=== PATIENT | female | born 1990 | race Caucasian/White ===

== ENCOUNTER 2019-09-08 11:41 | Emergency (ER) | payer OTHER ==
[2019-09-08 11:45] VITALS: RESP 18; TEMP 97.4
[2019-09-08] MEDS ORDERED: SODIUM CHLORIDE 0.9% 500 ML 500 ML IV STA (12:38)
[2019-09-08 12:50] LABS: Basophils % (A) 1 %; Eosinophils # (A) 0.1 k/uL (0-0.7); Eosinophils % (A) 2 %; HCT 40.7 % (34.0-46.0); HGB 13.5 gm/dL (11.4-16.0); Lymphocytes # (A) 1.4 k/uL (1.0-4.8); Lymphocytes % (A) 32 %; MCHC 33.1 g/dL (31.0-37.0); MCV 93.7 fL (80.0-100.0); Mean Platelet Volume 7.5; Monocytes # (A) 0.2 k/uL (0-1.0); Monocytes % (A) 6 %; Neutrophils # (A) 2.5 k/uL (1.3-7.7); Neutrophils % (A) 58 %; Platelet Count 229 k/uL (150-450); RBC 4.35 m/uL (3.80-5.40); RDW 12.2 % (11.5-15.5); WBC 4.3 k/uL (3.8-10.6)
[2019-09-08 12:54] LABS: Appearance,Urine Clear (Clear); Bilirubin,Urine Negative (Negative); Blood,Urine Negative (Negative); Color,Urine Yellow; Glucose,Urine (UA) Negative (Negative); Ketones,Urine Negative (Negative); Leukocyte Esterase,Urine Negative (Negative); Nitrite,Urine Negative (Negative); PH, Urine 7.5 (5.0-8.0); Protein,Urine Trace (Negative); Specific Gravity,Urine 1.025 (1.001-1.035); Urobilinogen,Urine <2.0 mg/dL (<2.0)
[2019-09-08 13:01] LABS: ALT 15 U/L (4-34); AST 25 U/L (14-36); African American GFR (CKD) >90 (>60 ml/min/1.73 sqM); Albumin 4.7 g/dL (3.5-5.0); Alkaline Phosphatase 66 U/L (38-126); Anion Gap 8 mmol/L; Blood Urea Nitrogen 15 mg/dL (7-17); Calcium 9.7 mg/dL (8.4-10.2); Carbon Dioxide 25 mmol/L (22-30); Chloride 106 mmol/L (98-107); Glucose 94 mg/dL (74-99); Non-African American GFR(CKD) >90 (>60 ml/min/1.73 sqM); Potassium 5.2 mmol/L (3.5-5.1); Sodium 139 mmol/L (137-145); Total Bilirubin 0.4 mg/dL (0.2-1.3); Total Protein 7.4 g/dL (6.3-8.2)
--- NOTE | 2019-09-08 13:16 | XR ---
EXAMINATION TYPE: XR KUB DATE OF EXAM: 09/08/2019 1:09 PM CLINICAL HISTORY: Right-sided abdominal pain and swelling TECHNIQUE: Single supine KUB image of the abdomen is obtained. COMPARISON: None. FINDINGS: The liver is enlarged extending past the iliac crest. Possibility of bowel gas in the right abdomen is seen secondary to hepatomegaly. S-shaped scoliotic curvature of the thoracolumbar spine. Rectum is air-filled but nondilated. No dilated large or small bowel. Lung bases are well aerated. Os seous structures are intact. IMPRESSION: 1. Hepatomegaly. 2. Nonobstructive bowel gas pattern. Bowel is deviated towards the left secondary to hepatomegaly.
--- NOTE | 2019-09-08 13:55 | US ---
EXAMINATION TYPE: US gallbladder DATE OF EXAM: 09/08/2019 COMPARISON: NONE CLINICAL HISTORY: RUQ pain . right sided abdominal pain and bloating since this morning EXAM MEASUREMENTS: Liver Length: 19.9 cm Gallbladder Wall: 0.2 cm CBD: 0.3 cm Right Kidney: 12.2 x 4.0 x 4.2 cm Pancreas: limited evaluation due to overlying bowel content, visualized portions appear wnl Liver: enlarged Gallbladder: no evidence of stones Evidence for sonographic Harper's sign: no CBD: wnl Right Kidney: no evidence of hydronephrosis IMPRESSION: No sonographic evidence of cholelithiasis nor acute cholecystitis. Hepatomegaly is incide ntally seen.
[2019-09-08 14:28] VITALS: BP 111/68; PULSE 75
--- NOTE | 2019-09-08 14:40 | ED ---
General Adult HPI - General Chief complaint: Abdominal Pain Stated complaint: abd swelling Time Seen by Provider: 09/08/19 11:51 Source: patient, RN notes reviewed, old records reviewed Mode of arrival: ambulatory Limitations: no limitations - History of Present Illness Initial comments: 29-year-old female patient presents to the chief complaint of right upper quadrant abdominal pain, abdominal distention was began this morning. Patient presents that she woke up the right upper quadrant pain. Reports that she also feels that she is bloated. Reports that time of evaluation her pain is mostly decreased. Denies any other complaints at this time. She is having bowel movements, denies any nausea or vomiting. Denies any chance of being . Systemic: Pt denies fatigue, fever/chills, rash. Pt denies weakness, night sweats, weight loss. Neuro: Pt denies headache, visual disturbances, syncope or pre-syncope. HEENT: Pt denies ocular discharge or irritation, otalgia, rhinorrhea, pharyngitis or notable lymphadenopathy. Cardiopulmonary: Pt denies chest pain, SOB, heart palpitations, dyspnea on exertion. Abdominal/GI: Pt denies n/v/d. : Pt denies dysuria, burning w/ urination, frequency/urgency. Denies new onset urinary or bowel incontinence. MSK: Pt denies myalgia, loss of strength or function in extremities. Neuro: Pt denies new onset weakness, paresthesias. - Related Data Allergies Allergy/AdvReac Type Severity Reaction Status Date / Time Penicillins Allergy Unknown Verified 09/08/19 11:45 Review of Systems ROS Statement: Those systems with pertinent positive or pertinent negative responses have been documented in the HPI. ROS Other: All systems not noted in ROS Statement are negative. Past Medical History Past Medical History: No Reported History History of Any Multi-Drug Resistant Organisms: None Reported Past Surgical History: No Surgical Hx Reported Past Psychological History: Depression Smoking Status: Former smoker Past Alcohol Use History: Occasional Past Drug Use History: None Reported General Exam - General Exam Comments Initial Comments: Constitutional: NAD, AOX3, Pt has pleasant affect. HEENT: NC/AT, trachea midline, neck supple, no lymphadenopathy. Posterior pharynx non erythematous, without exudates. External ears appear normal, without discharge. Mucous membranes moist. Eyes PERRLA, EOM intact. There is no scleral icterus. No pallor noted. Cardiopulmonary: RRR, no murmurs, rubs or gallops, no JVD noted. Lungs CTAB in anterior and posterior reyna. No peripheral edema. Abdominal exam: Abdomen soft and non-distended. Abdomen mildly tender to palpation right upper quadrant region. Harper sign is negative. Metabolic amount of discomfort left periumbilical region.. Bowel sounds active in LLQ. No hepatosplenomegaly. No ecchymosis Neuro: CN II-XII grossly intact. No nuchal rigidity. No raccon eyes, no bustos sign, no hemotympanum. No cervical spinal tenderness. MSK: No posterior calf tenderness bilaterally, homans sign negative bilaterally. Posterior tibialis and radial pulse +2 bilaterally. Sensation intact in upper and lower extremities. Full active ROM in upper and lower extremities, 5/5 stregnth. Limitations: no limitations Course Vital Signs 09/08/19 09/08/19 11:43 14:27 Temperature 97.4 F L Pulse Rate 70 75 Respiratory 18 18 Rate Blood Pressure 115/76 111/68 O2 Sat by Pulse 99 95 Oximetry Medical Decision Making - Medical Decision Making 29-year-old female patient presents to ED chief complaint of abdominal pain which has improved greatly upon presentation to the ER. Patient will signs are stable, afebrile. Physical exam displayed very mild tenderness to right upper quadrant, left periumbilical region. Laboratory investigations are non- impressive. UA is negative, hCG is negative. KUB displayed hepatomegaly, nonobstructive bowel gas pattern. Ultrasound not display any evidence of cholelithiasis or cholecystitis. Hepatomegaly is currently seen. Patient likely was experiencing biliary colic. Patient discharged outpatient surgical follow-up. Patient also will follow up with primary care provider for hepatomegaly. Patient will return to ER if condition worsens. Case discussed with Dr. Yang. - Lab Data Result diagrams: 09/08/19 12:30 09/08/19 12:30 Lab Results 09/08/19 09/08/19 09/08/19 Range/Units 12:30 12:30 12:30 WBC 4.3 (3.8-10.6) k/uL RBC 4.35 (3.80-5.40) m/uL Hgb 13.5 (11.4-16.0) gm/dL Hct 40.7 (34.0-46.0) % MCV 93.7 (80.0-100.0) fL MCH 31.0 (25.0-35.0) pg MCHC 33.1 (31.0-37.0) g/dL RDW 12.2 (11.5-15.5) % Plt Count 229 (150-450) k/uL Neutrophils % 58 % Lymphocytes % 32 % Monocytes % 6 % Eosinophils % 2 % Basophils % 1 % Neutrophils # 2.5 (1.3-7.7) k/uL Lymphocytes # 1.4 (1.0-4.8) k/uL Monocytes # 0.2 (0-1.0) k/uL Eosinophils # 0.1 (0-0.7) k/uL Basophils # 0.0 (0-0.2) k/uL Sodium 139 (137-145) mmol/L Potassium 5.2 H (3.5-5.1) mmol/L Chloride 106 (98-107) mmol/L Carbon Dioxide 25 (22-30) mmol/L Anion Gap 8 mmol/L BUN 15 (7-17) mg/dL Creatinine 0.71 (0.52-1.04) mg/dL Est GFR (CKD-EPI)AfAm >90 (>60 ml/min/1.73 sqM) Est GFR (CKD-EPI)NonAf >90 (>60 ml/min/1.73 sqM) Glucose 94 (74-99) mg/dL Plasma Lactic Acid Bradford (0.7-2.0) mmol/L Calcium 9.7 (8.4-10.2) mg/dL Total Bilirubin 0.4 (0.2-1.3) mg/dL AST 25 (14-36) U/L ALT 15 (4-34) U/L Alkaline Phosphatase 66 (38-126) U/L Total Protein 7.4 (6.3-8.2) g/dL Albumin 4.7 (3.5-5.0) g/dL Lipase 57 (23-300) U/L Urine Color Urine Appearance (Clear) Urine pH (5.0-8.0) Ur Specific [place] (1.001-1.035) Urine Protein (Negative) Urine Glucose (UA) (Negative) Urine Ketones (Negative) Urine Blood (Negative) Urine Nitrite (Negative) Urine Bilirubin (Negative) Urine Urobilinogen (<2.0) mg/dL Ur Leukocyte Esterase (Negative) Urine HCG, Qual Not Detected (Not Detectd) 09/08/19 09/08/19 Range/Units 12:30 12:30 WBC (3.8-10.6) k/uL RBC (3.80-5.40) m/uL Hgb (11.4-16.0) gm/dL Hct (34.0-46.0) % MCV (80.0-100.0) fL MCH (25.0-35.0) pg MCHC (31.0-37.0) g/dL RDW (11.5-15.5) % Plt Count (150-450) k/uL Neutrophils % % Lymphocytes % % Monocytes % % Eosinophils % % Basophils % % Neutrophils # (1.3-7.7) k/uL Lymphocytes # (1.0-4.8) k/uL Monocytes # (0-1.0) k/uL Eosinophils # (0-0.7) k/uL Basophils # (0-0.2) k/uL Sodium (137-145) mmol/L Potassium (3.5-5.1) mmol/L Chloride (98-107) mmol/L Carbon Dioxide (22-30) mmol/L Anion Gap mmol/L BUN (7-17) mg/dL Creatinine (0.52-1.04) mg/dL Est GFR (CKD-EPI)AfAm (>60 ml/min/1.73 sqM) Est GFR (CKD-EPI)NonAf (>60 ml/min/1.73 sqM) Glucose (74-99) mg/dL Plasma Lactic Acid Bradford 0.9 (0.7-2.0) mmol/L Calcium (8.4-10.2) mg/dL Total Bilirubin (0.2-1.3) mg/dL AST (14-36) U/L ALT (4-34) U/L Alkaline Phosphatase (38-126) U/L Total Protein (6.3-8.2) g/dL Albumin (3.5-5.0) g/dL Lipase (23-300) U/L Urine Color Yellow Urine Appearance Clear (Clear) Urine pH 7.5 (5.0-8.0) Ur Specific [place] 1.025 (1.001-1.035) Urine Protein Trace H (Negative) Urine Glucose (UA) Negative (Negative) Urine Ketones Negative (Negative) Urine Blood Negative (Negative) Urine Nitrite Negative (Negative) Urine Bilirubin Negative (Negative) Urine Urobilinogen <2.0 (<2.0) mg/dL Ur Leukocyte Esterase Negative (Negative) Urine HCG, Qual (Not Detectd) Disposition Clinical Impression: Abdominal pain Disposition: HOME SELF-CARE Condition: Stable Instructions (If sedation given, give patient instructions): Abdominal Pain (ED) Additional Instructions: Follow-up with primary care provider and surgical consult tomorrow. Return to ER immediately if condition worsens in any way. Is patient prescribed a controlled substance at d/c from ED?: No Referrals: Florin Samayoa MD [Primary Care Provider] - 1-2 days Sneha Wolf MD [STAFF PHYSICIAN] - 1-2 days
== END 2019-09-08 14:58 | disposition home or self-care (01) ==
LOC: EC 11:41
DX: R10.11 Right upper quadrant pain (principal); R14.0 Abdominal distension (gaseous); R16.0 Hepatomegaly, not elsewhere classified; Z32.02 Encounter for pregnancy test, result negative; Z88.0 Allergy status to penicillin; Z87.891 Personal history of nicotine dependence
CPT/HCPCS: 36415; 74018; 76705; 80053; 81003; 81025; 83605; 83690; 85025; 96360; 96361; 99285

== ENCOUNTER 2019-11-05 20:50 | Inpatient (IN) | payer OTHER ==
[2019-11-05 22:01] LABS: Amphetamine Screen,Urine Not Detected (NotDetected); Barbiturate Screen,Urine Not Detected (NotDetected); Benzodiazepines Screen,Urine Not Detected (NotDetected); Cocaine Screen,Urine Not Detected (NotDetected); Methadone Screen, Urine Not Detected (NotDetected); Opiate Screen,Urine Not Detected (NotDetected); Oxycodone Screen, Urine Not Detected (NotDetected); Phencyclidine Screen,Urine Not Detected (NotDetected); Tricyclic Antidepressant,Urine Not Detected (NotDetected); Urn Cannabinoid Scrn Not Detected (NotDetected)
--- NOTE | 2019-11-05 22:55 | ED ---
General Adult HPI - General Chief complaint: Psychiatric Symptoms Stated complaint: Suicidal Ideation Time Seen by Provider: 11/05/19 20:55 Source: patient, RN notes reviewed Mode of arrival: ambulatory Limitations: no limitations - History of Present Illness Initial comments: 29-year-old female presents to the emergency department for suicidal thoughts. Patient states that she was recently hospitalized and released about a week ago for suicidal thoughts. States she has had several medication changes including the additions of Vistaril, Ambien. Patient has been taking Lexapro for quite some time. Patient states that her side effects did improve after she was released from the hospital. However today she was on her way to pharmacy picking tech her son and felt suicidal. States that she saw the oncoming traffic and wanted to drive into it. Patient states she knew that at that time she needed to be evaluated.Patient has no other complaints at this time including shortness of breath, chest pain, abdominal pain, nausea or vomiting, headache, or visual changes. - Related Data Home Medications Medication Instructions Recorded Confirmed ARIPiprazole [Abilify] 10 mg PO HS 11/05/19 11/05/19 Escitalopram [Lexapro] 20 mg PO HS 11/05/19 11/05/19 Zolpidem [Ambien] 5 mg PO HS PRN 11/05/19 11/05/19 hydrOXYzine PAMOATE [Vistaril] 25 mg PO Q6H PRN 11/05/19 11/05/19 Allergies Allergy/AdvReac Type Severity Reaction Status Date / Time Penicillins Allergy Unknown Verified 11/05/19 23:06 Review of Systems ROS Statement: Those systems with pertinent positive or pertinent negative responses have been documented in the HPI. ROS Other: All systems not noted in ROS Statement are negative. Past Medical History Past Medical History: No Reported History History of Any Multi-Drug Resistant Organisms: None Reported Past Surgical History: No Surgical Hx Reported Past Psychological History: Depression Smoking Status: Former smoker Past Alcohol Use History: Occasional Past Drug Use History: None Reported General Exam Limitations: no limitations General appearance: alert, in no apparent distress Head exam: Present: atraumatic, normocephalic, normal inspection Eye exam: Present: normal appearance, PERRL, EOMI. Absent: scleral icterus, conjunctival injection, periorbital swelling ENT exam: Present: normal exam, mucous membranes moist Neck exam: Present: normal inspection. Absent: tenderness, meningismus, lymphadenopathy Respiratory exam: Present: normal lung sounds bilaterally. Absent: respiratory distress, wheezes, rales, rhonchi, stridor Cardiovascular Exam: Present: regular rate, normal rhythm, normal heart sounds. Absent: systolic murmur, diastolic murmur, rubs, gallop, clicks GI/Abdominal exam: Present: soft, normal bowel sounds. Absent: distended, tenderness, guarding, rebound, rigid Neurological exam: Present: alert Psychiatric exam: Present: suicidal ideation Course Vital Signs 11/05/19 20:52 Temperature 98.0 F Pulse Rate 71 Respiratory 18 Rate Blood Pressure 130/84 O2 Sat by Pulse 98 Oximetry Medical Decision Making - Medical Decision Making HPI and physical exam as documented. Vitals are stable. Patient was evaluated by EPS, currently recommending inpatient admission. Patient signed in herself. - Lab Data Lab Results 11/05/19 Range/Units 21:30 Urine Opiates Screen Not Detected (NotDetected) Ur Oxycodone Screen Not Detected (NotDetected) Urine Methadone Screen Not Detected (NotDetected) Ur Propoxyphene Screen Not Detected (NotDetected) Ur Barbiturates Screen Not Detected (NotDetected) U Tricyclic Antidepress Not Detected (NotDetected) Ur Phencyclidine Scrn Not Detected (NotDetected) Ur Amphetamines Screen Not Detected (NotDetected) U Methamphetamines Scrn Not Detected (NotDetected) U Benzodiazepines Scrn Not Detected (NotDetected) Urine Cocaine Screen Not Detected (NotDetected) U Marijuana (THC) Screen Not Detected (NotDetected) Disposition Clinical Impression: Suicidal ideation Disposition: ADMITTED IP TO THIS HOSP Condition: Fair Is patient prescribed a controlled substance at d/c from ED?: No Referrals: Florin Samayoa MD [Primary Care Provider] - 1-2 days Time of Disposition: 23:16
[2019-11-05] MEDS ORDERED: MAG HYDROX/AL HYDROX/SIMETH 30 ML CUP PO PRN (23:03)
[2019-11-05] MEDS ORDERED: ZIPRASIDONE 20 MG VIAL IM PRN (23:03)
[2019-11-05] MEDS: LORazepam 1 MG TAB PO PRN (23:53)
[2019-11-06 07:11] LABS: Basophils % (A) 1 %; Eosinophils # (A) 0.1 k/uL (0-0.7); Eosinophils % (A) 2 %; HGB 13.8 gm/dL (11.4-16.0); Lymphocytes # (A) 1.6 k/uL (1.0-4.8); Lymphocytes % (A) 34 %; MCH 31.2 pg (25.0-35.0); MCHC 32.7 g/dL (31.0-37.0); MCV 95.3 fL (80.0-100.0); Mean Platelet Volume 7.3; Monocytes # (A) 0.3 k/uL (0-1.0); Monocytes % (A) 6 %; Neutrophils # (A) 2.6 k/uL (1.3-7.7); Neutrophils % (A) 56 %; Platelet Count 244 k/uL (150-450); RDW 12.4 % (11.5-15.5); WBC 4.7 k/uL (3.8-10.6)
[2019-11-06 07:24] LABS: ALT 17 U/L (4-34); AST 22 U/L (14-36); African American GFR (CKD) >90 (>60 ml/min/1.73 sqM); Albumin 4.5 g/dL (3.5-5.0); Alkaline Phosphatase 49 U/L (38-126); Anion Gap 10 mmol/L; Blood Urea Nitrogen 17 mg/dL (7-17); Calcium 9.7 mg/dL (8.4-10.2); Carbon Dioxide 25 mmol/L (22-30); Chloride 104 mmol/L (98-107); Cholesterol 199 mg/dL (<200); Glucose 90 mg/dL (74-99); HDL Cholesterol 75 mg/dL (40-60); LDL Cholesterol,Calculated 114 mg/dL (0-99); Non-African American GFR(CKD) >90 (>60 ml/min/1.73 sqM); Potassium 4.4 mmol/L (3.5-5.1); Sodium 139 mmol/L (137-145); Total Bilirubin 0.4 mg/dL (0.2-1.3); Total Protein 7.3 g/dL (6.3-8.2); Triglycerides 51 mg/dL (<150)
[2019-11-06] MEDS: LORazepam 1 MG TAB PO PRN ×2 (08:23→15:49)
[2019-11-06 13:51] LABS: Hemoglobin A1C 5.3 % (4.0-6.0)
--- NOTE | 2019-11-06 14:55 | P.HP ---
Psychiatric H&P - . H&P Date: 11/06/19 History & Physical: Allergies Allergy/AdvReac Type Severity Reaction Status Date / Time Penicillins Allergy Unknown Verified 11/05/19 23:06 Vital Signs Temp 98.5 F 11/06/19 08:24 Pulse 107 H 11/06/19 08:24 Resp 20 11/06/19 08:24 BP 130/62 11/06/19 08:24 Pulse Ox 98 11/05/19 23:20 Intake & Output 11/05/19 11/06/19 11/06/19 18:59 06:59 18:59 Weight 62.596 kg Laboratory Last Values WBC 4.7 k/uL (3.8-10.6) 11/06/19 06:49 RBC 4.40 m/uL (3.80-5.40) 11/06/19 06:49 Hgb 13.8 gm/dL (11.4-16.0) 11/06/19 06:49 Hct 42.0 % (34.0-46.0) 11/06/19 06:49 MCV 95.3 fL (80.0-100.0) 11/06/19 06:49 MCH 31.2 pg (25.0-35.0) 11/06/19 06:49 MCHC 32.7 g/dL (31.0-37.0) 11/06/19 06:49 RDW 12.4 % (11.5-15.5) 11/06/19 06:49 Plt Count 244 k/uL (150-450) 11/06/19 06:49 Neutrophils % 56 % 11/06/19 06:49 Lymphocytes % 34 % 11/06/19 06:49 Monocytes % 6 % 11/06/19 06:49 Eosinophils % 2 % 11/06/19 06:49 Basophils % 1 % 11/06/19 06:49 Neutrophils # 2.6 k/uL (1.3-7.7) 11/06/19 06:49 Lymphocytes # 1.6 k/uL (1.0-4.8) 11/06/19 06:49 Monocytes # 0.3 k/uL (0-1.0) 11/06/19 06:49 Eosinophils # 0.1 k/uL (0-0.7) 11/06/19 06:49 Basophils # 0.0 k/uL (0-0.2) 11/06/19 06:49 Sodium 139 mmol/L (137-145) 11/06/19 06:49 Potassium 4.4 mmol/L (3.5-5.1) 11/06/19 06:49 Chloride 104 mmol/L (98-107) 11/06/19 06:49 Carbon Dioxide 25 mmol/L (22-30) 11/06/19 06:49 Anion Gap 10 mmol/L 11/06/19 06:49 BUN 17 mg/dL (7-17) 11/06/19 06:49 Creatinine 0.68 mg/dL (0.52-1.04) 11/06/19 06:49 Est GFR (CKD-EPI)AfAm >90 (>60 ml/min/1.73 sqM) 11/06/19 06:49 Est GFR (CKD-EPI)NonAf >90 (>60 ml/min/1.73 sqM) 11/06/19 06:49 Glucose 90 mg/dL (74-99) 11/06/19 06:[address] Glu mg/dL 105 11/06/19 06:49 Hemoglobin A1c 5.3 % (4.0-6.0) 11/06/19 06:49 Calcium 9.7 mg/dL (8.4-10.2) 11/06/19 06:49 Total Bilirubin 0.4 mg/dL (0.2-1.3) 11/06/19 06:49 AST 22 U/L (14-36) 11/06/19 06:49 ALT 17 U/L (4-34) 11/06/19 06:49 Alkaline Phosphatase 49 U/L (38-126) 11/06/19 06:49 Total Protein 7.3 g/dL (6.3-8.2) 11/06/19 06:49 Albumin 4.5 g/dL (3.5-5.0) 11/06/19 06:49 Triglycerides 51 mg/dL (<150) 11/06/19 06:49 Cholesterol 199 mg/dL (<200) 11/06/19 06:49 LDL Cholesterol, Calc 114 mg/dL (0-99) H 11/06/19 06:49 HDL Cholesterol 75 mg/dL (40-60) H 11/06/19 06:49 TSH 1.330 mIU/L (0.465-4.680) 11/06/19 06:49 Urine Opiates Screen Not Detected (NotDetected) 11/05/19 21:30 Ur Oxycodone Screen Not Detected (NotDetected) 11/05/19 21:30 Urine Methadone Screen Not Detected (NotDetected) 11/05/19 21:30 Ur Propoxyphene Screen Not Detected (NotDetected) 11/05/19 21:30 Ur Barbiturates Screen Not Detected (NotDetected) 11/05/19 21:30 U Tricyclic Antidepress Not Detected (NotDetected) 11/05/19 21:30 Ur Phencyclidine Scrn Not Detected (NotDetected) 11/05/19 21:30 Ur Amphetamines Screen Not Detected (NotDetected) 11/05/19 21:30 U Methamphetamines Scrn Not Detected (NotDetected) 11/05/19 21:30 U Benzodiazepines Scrn Not Detected (NotDetected) 11/05/19 21:30 Urine Cocaine Screen Not Detected (NotDetected) 11/05/19 21:30 U Marijuana (THC) Screen Not Detected (NotDetected) 11/05/19 21:30 11/06/19 14:47 IDENTIFYING DATA: 29-year-old female patient HPI: Patient admitted to the inpatient psychiatric unit [facility] on involuntary basis with concerns regarding depression and thoughts of suicide. Patient reports that she's been having thoughts of suicide for last 2 months. She said yesterday she was driving and had thoughts of crashing her car and came to the hospital because of that. She says in the waiting room of the emergency room she had about a bashing her head on the wall. She relays her mood lately has been hopeless, feeling like it's not worth it. She has feelings that her mind can't quiet down. PAST PSYCHIATRIC HISTORY: Patient had a recent psychiatric hospitalization at [place] for approximately a week. That was about a week ago. It certainly previous admission. She does admit to being a worrier. She was placed on Abilify small dose but that made her feel very restless. Vistaril made her feel tired. Ambien when necessary she does not like it. She has been on Lexapro for about 6 months and relays that she really likes that medication but she does feel like it stopped working. She said that she used to cut on herself but has never had any suicide attempts. PMH: Denies ALLERGIES: Penicillins MEDICATIONS: Tylenol when necessary, Maalox when necessary, Ativan when necessary, Motrin when necessary, Geodon when necessary CHEMICAL DEPENDENCY HISTORY: She states that she was drinking quite a lot to where was becoming a problem. Has not had any alcohol for 2 weeks. FAMILY PSYCHIATRIC HISTORY: Little brother was diagnosed with "atypical bipolar disorder." A cousin with depression committed suicide. FAMILY CHEMICAL DEPENDENCY HISTORY: Not known at this time. SOCIAL HISTORY: She currently lives with her mom and 2 children who are 6 and 2. She is close with her kids. She is and , has been filed. She's been for 3 years, her only marriage. 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 MENTAL STATUS EXAM: She is alert and cooperative with the interview. Her speech is fluent, not rapid or pressured. Regarding her mood she describes hopelessness, appears depressed. She admits to some ongoing thoughts of suicide but reports she feels safe in the hospital. She does not verbalize any thoughts of harming others. No evidence of active psychosis. She makes reference to a thought that she wants to sleep forever. Cognitively she appears very grossly intact. I do not note any significant disorientation or memory disturbance. H er insight is adequate, judgment shows evidence of recent impairment. STRENGTHS/WEAKNESSES: Strengths-receiving treatment; weaknesses-coping skills INTELLECTUAL FUNCTIONING: Average IMPRESSIONS: Major depressive disorder, recurrent; rule out generalized anxiety disorder; rule out alcohol use disorder PLAN: Patient is admitted to the inpatient psychiatric unit [facility] a voluntary basis. She is placed on SP 15 minute precautions. Baseline laboratory workup will be done the patient and medical consultation will be ordered. She'll participate in group and activity therapies. We will maintain Lexapro 20 more grams at bedtime with history of some positive response. We will initiate Lamictal to help augment for mood as well as helping with any irritability or racing thoughts. We will order melatonin to help with sleep. We will look into any support systems. Estimated length of stay is 3-5 days. Prognosis is guarded.
[2019-11-06] MEDS: lamoTRIgine 25 MG TAB PO SCH (21:04)
[2019-11-06] MEDS: ESCITALOPRAM 20 MG TAB PO SCH (21:04)
[2019-11-06] MEDS: MELATONIN 3 MG TABLET PO SCH (21:04)
[2019-11-07] MEDS: LORazepam 1 MG TAB PO PRN ×2 (08:28→18:16)
--- NOTE | 2019-11-07 09:04 | HP ---
HISTORY AND PHYSICAL A 29-year-old white female with suicidal ideation and depression, on the psych [facility]. She is on IM Geodon 20 mg b.i.d. and Ativan 1 mg every four hours. She had failed Lexapro for depression. She came to the psychiatric [facility]. She was placed on Abilify and Ambien and sent home. She did not do well. She thought she was going to drive into traffic with her son in the car, at which time she came to the psych [facility]. Clinically she is stable but she is suicidal. No chest pain or shortness of breath. No medical conditions to speak of. REVIEW OF SYSTEMS: A 14-point review of systems is negative except as mentioned in the HPI. PHYSICAL EXAMINATION: CARDIOVASCULAR: S1 and S2. VITALS: Stable. LUNGS: Clear. GASTROINTESTINAL: Soft. HEMATOLOGIC: Negative Homans'. PSYCHIATRIC: Fair mood and affect. ASSESSMENT: 1. Suicidal ideation. 2. Depression. Medically she is stable, just waiting for psychiatric recommendations. MMODL / IJN: [id number] /
--- NOTE | 2019-11-07 11:28 | P.PN ---
Progress Note - Text Progress Note Date: 11/07/19 Interval history: Patient reports that she slept better last night. She is seen in cross coverage again today. She does not voice any adverse side effects with the Lamictal. She does describe related to the Abilify her tongue feels kind of lazy and she did have some jitteriness type feeling with the Abilify. Abilify has been discontinued. She was found in the group room playing a game. Overall her mood does appear to be better. Mental status exam: She is alert and cooperative with the interview. She describes that her tongue feels lazy this does appear to have a slight impact on her speech at times, her speech is not rapid or pressured. I do not note any abnormal involuntary movements. Thought processes are organized. Her mood appears to be better. She denies any current thoughts of suicide. She does not voice any thoughts of harm to others. No evidence of psychosis or agitation. Plan: Will initiate low dose of Cogentin as needed to help with any possible extrapyramidal side effects from Abilify maintain other current psychotropic medication regimen. Continue to monitor regarding any thoughts of suicide. Continue to monitor for any psychotropic medication side effects and ongoing response to treatment
[2019-11-07] MEDS: ACETAMINOPHEN TAB 325 MG TAB PO PRN (13:57)
[2019-11-07] MEDS: BENZTROPINE MESYLATE 0.5 MG TAB PO PRN (15:42)
[2019-11-07] MEDS: lamoTRIgine 25 MG TAB PO SCH (20:53)
[2019-11-07] MEDS: MELATONIN 3 MG TABLET PO SCH (20:53)
[2019-11-07] MEDS: ESCITALOPRAM 20 MG TAB PO SCH (20:53)
[2019-11-08] MEDS: BENZTROPINE MESYLATE 0.5 MG TAB PO PRN (06:41)
[2019-11-08] MEDS: LORazepam 1 MG TAB PO PRN ×2 (06:41→17:14)
--- NOTE | 2019-11-08 11:54 | P.PN ---
Progress Note - Text Interval history: The patient is found in the hallway she follows me to an interview room. The patient was admitted over the weekend by Dr. Boggs for suicidal ideation. The patient had recently been admitted to another inpatient psychiatric hospital called [facility] and was discharged only one week ago. She was placed on Abilify and continued on Lexapro. She states that the Abilify caused oral buccal movements as well as restlessness. The Abilify was discontinued this past weekend. She was started on Lamictal. She endorses no history of hypomanic or manic episodes. She continues to feel sad she is tearful during our session. We discussed medication options in terms of augmenting the Lexapro. She feels that the Lexapro has been very valuable especially in resolving her previous symptoms of anxiety. Mental status exam: The patient is a thin female appearing her stated age she is alert she stressor own clothing hygiene grooming adequate. Speech is fluent spontaneous nonpressured. She reports a sad mood she demonstrates a dysphoric affect and is tearful during the session. She describes having h opeless thoughts and is concerned that she will never feel good again. She indicates she feels safe here in the hospital but admits that she was suicidal prior to the admission. She reports no homicidal ideation intent or plan. She reports no auditory or visual hallucinations or any specific delusions. She demonstrates no verbal or physical aggressiveness she demonstrates no involuntary repetitive movements. Thought process is linear she demonstrates no tangential thinking loose associations or flight of ideas. Insight and judgment limited. Plan: The patient will continue on the left for 20 mg daily, I will discontinue the Lamictal and we will initiate Wellbutrin XL 150 mg in the morning to augment the Lexapro in treating depression. She has no history of seizures. We discussed her alcohol use in detail. She is encouraged to continue participating in the milieu we will monitor for safety. We will involve family in treatment and discharge planning as she will allow.
[2019-11-08] MEDS: buPROPion XL 150 MG TAB.ER.24H PO SCH (12:17)
[2019-11-08] MEDS: ACETAMINOPHEN TAB 325 MG TAB PO PRN (12:18)
[2019-11-08] MEDS: ESCITALOPRAM 20 MG TAB PO SCH (20:25)
[2019-11-08] MEDS: MELATONIN 3 MG TABLET PO SCH (20:25)
[2019-11-08] MEDS ORDERED: hydrOXYzine PAMOATE 25 MG CAP PO ONE (20:46)
[2019-11-09] MEDS: buPROPion XL 150 MG TAB.ER.24H PO SCH (08:29)
[2019-11-09] MEDS: LORazepam 1 MG TAB PO PRN ×2 (08:30→18:11)
--- NOTE | 2019-11-09 11:23 | P.PN ---
Progress Note - Text Interval history: The patient's found in [facility] he follows me to an interview room. She indicates her mood is a little better. She is still feeling anxious and still depressed. She reports continued hopelessness thoughts. In terms of suicidal ideation she characterizes him as being more passive but they still persist. She has decided that she will call for inpatient chemical dependency treatment. We discussed that process and treatment for several minutes. We reviewed her psychotropic medications she had no specific questions regarding those. She has been attending groups and attending meals. Staff reported she slept 7 hours. Mental status exam: The patient is alert she is pleasant cooperative she is directed easily. She is dressed in her own clothing hygiene grooming adequate. Speech is fluent spontaneous nonpressured. She continues to endorse a depressed and anxious mood she endorses hopelessness thinking with passive suicidal thoughts still. She reports no homicidal ideation intent or plan and there is no evidence or report of psychosis. She demonstrates no tangential thinking loose associations or flight of ideas she does not appear hypomanic or manic. Insight and judgment limited. She demonstrates no verbal or physical aggressiveness she demonstrates no repetitive involuntary movements. Plan: The patient will continue on her current psychotropic medication. We will monitor her for safety she is encouraged to participate in the milieu. She is encouraged to call for rehab as soon as possible to initiate that process. Vital signs reviewed. She requires continued psychiatric hospitalization.
[2019-11-09] MEDS: MELATONIN 3 MG TABLET PO SCH (20:37)
[2019-11-09] MEDS: ESCITALOPRAM 20 MG TAB PO SCH (20:37)
[2019-11-10] MEDS: LORazepam 1 MG TAB PO PRN ×3 (03:13→22:34)
[2019-11-10] MEDS: buPROPion XL 150 MG TAB.ER.24H PO SCH (08:35)
[2019-11-10] MEDS ORDERED: buPROPion XL 150 MG TAB.ER.24H PO ONE (08:56)
--- NOTE | 2019-11-10 09:06 | P.PN ---
Progress Note - Text Interval history: [facility] room. She indicates that her mood is "sad". She states that she feels "bored of life". There appears to be no new precipitant to this feeling and she states it's just part of the depression she's been experiencing for the last year. She states that she will attend groups. She did complete the call to access and is choosing to go to [facility] once excepted. Social work has faxed a packet. The patient is reported to have slept 5 hours last evening she is asking to titrate the melatonin further due to difficulty sleeping. Appetite reportedly stable. Mental status exam: The patient is a thin female appearing her stated age. She is dressed in her own clothing hygiene grooming adequate. Eye contact is appropriate. She is pleasant cooperative easily directed. She endorses a sad mood affect is constricted, speech is fluent spontaneous nonpressured. Thought process is linear and goal-directed she reports no acute symptoms of psychosis there is no overt evidence of psychosis she demonstrates no tangential thinking loose associations or flight of ideas she does not appear hypomanic or manic. She didn't strays no verbal or physical aggressiveness. Insight and judgment limited. Plan: The patient will continue on her current medication however we will titrate the Wellbutrin XL to 300 mg daily. Continue Lexapro is written. We will increase the melatonin to 6 mg at bedtime. We will await input from [facility] regarding placement date. Vital signs reviewed they're within normal limits. She is encouraged to continue participating in the milieu. We will continue to monitor her for safety. She requires continued psychiatric hospitalization for mood symptoms.
[2019-11-10] MEDS: ACETAMINOPHEN TAB 325 MG TAB PO PRN (20:53)
[2019-11-10] MEDS: MELATONIN 3 MG TABLET PO SCH (20:53)
[2019-11-10] MEDS: ESCITALOPRAM 20 MG TAB PO SCH (20:53)
[2019-11-11] MEDS: buPROPion XL 300 MG TAB.ER.24H PO SCH (08:58)
[2019-11-11] MEDS: LORazepam 1 MG TAB PO PRN ×2 (08:58→16:43)
--- NOTE | 2019-11-11 09:27 | P.PN ---
Progress Note - Text Interval history: The patient is found in group she follows me to an interview room. She reports that her mood is better today. She feels that the medication changes have been helpful. She is reporting no side effects to the medication. She reports looking forward to attending [facility] for inpatient chemical dependency treatment. She indicates that she slept last night appetite is stable she is attending groups. She did have a visit from family last evening which was supportive. Mental status exam: The patient is alert she is dressed in her own clothing she is pleasant cooperative easily directed. She reports that her mood is improving. She reports feeling safe in the hospital. She is reporting no homicidal ideation intent or plan. Affect is brighter. Hopeless thoughts are reducing. She is demonstrating no evidence of psychosis she does not appear hypomanic or manic. Insight and judgment improving. She remains oriented to person place and date. She demonstrates no verbal or physical aggressiveness. Plan: The patient will continue on her current psychotropic medications. We are awaiting a placement date at [facility]. Our plan is to have her transfer from here directly to [facility] once excepted. Vital signs reviewed. Her heart rate has been elevated she indicates that she has been hydrating appropriately but states that she has been anxious at times. She is encouraged to continue participating in the milieu.
[2019-11-11] MEDS: ESCITALOPRAM 20 MG TAB PO SCH (21:18)
[2019-11-11] MEDS: MELATONIN 3 MG TABLET PO SCH (21:18)
[2019-11-12] MEDS: ACETAMINOPHEN TAB 325 MG TAB PO PRN ×2 (04:46→16:51)
[2019-11-12] MEDS: buPROPion XL 300 MG TAB.ER.24H PO SCH (08:59)
[2019-11-12] MEDS ORDERED: LORazepam 0.5 MG TAB PO PRN (11:10)
[2019-11-12 12:42] VITALS: BMI 23.7
--- NOTE | 2019-11-12 12:42 | P.PN ---
Progress Note - Text Progress Note Date: 11/12/19 Clinical Problems: Major depressive disorder recurrent, alcohol use disorder Interim history: I reviewed the medical record, interviewed the patient and discuss her treatment and treatment plan. I interviewed the patient for Dr. Julian. Her only complaint was initial insomnia. We discussed treatment options and agreed to a trial of Seroquel 25 mg at bedtime. The treatment team expressed concern about her use of Ativan. Due to her history of alcohol use problems and risk for relapse the plan is to discharge her on the day she is to be admitted to [facility]. She denied feeling depressed or having persistent feelings anxiety that she is unable to control. However, she has been taking Ativan 2-3 times per day. We discussed her use of Ativan and I reminded her that she will not be discharged with a prescription for the medication. We agreed to taper the dose and discontinue prior to discharge. Mental status exam: She presented as a casually groomed pleasant young female. She made eye contact and attended to interview. She had a bright facial expression. She showed no abnormality of psychomotor activity. Her speech was spontaneous with normal rate, rhythm and volume. Her affect was bright, stable and appropriate. She denied suicidal ideation or wishes. She denied feeling hopeless or helpless. She did not express ideas reference, paranoid ideation or delusions. Her thinking was abstract, coherent and goal directed. She denied hallucinations did not appear to be responding to internal stimuli. Assessment: She has no apparent symptoms of depression or significant anxiety. Her only complaint is insomnia. Plan: Begin Seroquel 25 mg at bedtime when necessary for sleep. Decrease Ativan to 0.5 mg 3 times a day for 2 days then 2.5 mg twice a day and discontinue prior to discharge. Continue Wellbutrin XL and Lexapro as written. Continue melatonin 6 mg at bedtime.
[2019-11-12] MEDS: ESCITALOPRAM 20 MG TAB PO SCH (20:42)
[2019-11-12] MEDS: MELATONIN 3 MG TABLET PO SCH (20:43)
[2019-11-12] MEDS: QUEtiapine 25 MG TAB PO PRN ×2 (20:44→21:14)
[2019-11-13] MEDS: buPROPion XL 300 MG TAB.ER.24H PO SCH (09:01)
[2019-11-13] MEDS: ACETAMINOPHEN TAB 325 MG TAB PO PRN ×3 (09:02→21:19)
[2019-11-13] MEDS ORDERED: AZITHROMYCIN 500 MG TAB PO ONE (12:20)
--- NOTE | 2019-11-13 12:54 | XR ---
EXAMINATION TYPE: XR chest 1V portable DATE OF EXAM: 11/13/2019 CLINICAL HISTORY: Productive cough and difficulty breathing. TECHNIQUE: Single AP portable upright view of the chest is obtained. COMPARISON: None. FINDINGS: Overlying bra strap is present. No suspicious focal airspace opacity, pleural effusion, or pneumothorax seen bilaterally. Cardiac silhouette size appears within normal limits. Osseous structu res are intact. IMPRESSION: No suspicious acute infiltrate.
--- NOTE | 2019-11-13 14:37 | P.PN ---
Progress Note - Text Progress Note Date: 11/13/19 Subjective: Patient was seen today as a cross coverage for . The patient was evaluated, chart reviewed, case discussed with the treatment team. Patient reported poor sleep, but reports fair appetite. Patient has been going to groups and other unit activities. The patient is compliant with her medications and denies any adverse reactions. Patient reports feeling stable emotionally and he denies feeling depressed, suicidal, and he denies any severe mood swings. She denies any severe anxiety, racing thoughts, or panic attacks. She denies any manic symptoms and he denies any hallucinations, paranoid ideation, and no delusions could be elicited. Objective: Vitals has been reviewed. Mental status examination: Appearance: The patient appears stated age, adequately groomed and dressed, no specific features. Gait/posture: Normal gait, Normal arm swinging: No abnormal movements. Attitude and behavior: engaged, cooperative, eye contact. Motor activity: Normal psychomotor activity Speech: Normal rate, tone. Mood: Anxious Affect: Constricted Thought form: goal-directed, linear, coherent. Thought content: Non-delusional, denies suicidal thoughts, denies homicidal thoughts, denies intentions or plans. Perception: Denies any auditory or visual hallucinations Attention: No impairment. Orientation: Patient patient was fully oriented to time place person and situation. Insight: Patient has fair insight about her psychiatric disorder. Judgment: Patient has fair judgment about her psychiatric treatment. Assessment: Major depressive disorder, recurrent, moderate. Rule out generalized anxiety disorder. Plan: Continue inpatient level of care due to need for further stabilization and discharge planning provide psychiatric education regarding her diagnosis and treatment Precautions: Continue 15 minutes check for safety. Consider medical consultation if any acute medical issues arise. Provide the patient individual, group therapy, substance use disorder counseling to give better insight and learn coping skills. Medications: Continue Wellbutrin 300 mg daily for depression. Continue Lexapro 20 mg daily for anxiety and depression. Increase Seroquel to 50 mg at bedtime when necessary insomnia. Discharge patient to OUTPATIENT services upon a stabilization
[2019-11-13] MEDS: MAGNESIUM HYDROXIDE 2,400 MG/10 ML CUP PO PRN (14:49)
--- NOTE | 2019-11-13 20:39 | PN ---
PROGRESS NOTE 29-year-old white female with major depression, being seen by Psychiatry. She has cough, congestion, green phlegm. I am going to order a chest x-ray, put her on a Z- Basim. Lungs show scattered rhonchi. Cardiovascular S1, S2. ASSESSMENT: Depression, alcoholism. No evidence of any severe withdrawal. She will be placed at [facility] on Friday. We will start her on a Z-Basim and order a chest x-ray. MMODL / IJN: [id number] /
[2019-11-13] MEDS ORDERED: QUEtiapine 50 MG TAB PO PRN (21:00)
[2019-11-13] MEDS: MELATONIN 3 MG TABLET PO SCH (21:18)
[2019-11-13] MEDS: ESCITALOPRAM 20 MG TAB PO SCH (21:18)
[2019-11-14] MEDS ORDERED: LORazepam 0.5 MG TAB PO PRN (00:01)
[2019-11-14] MEDS: buPROPion XL 300 MG TAB.ER.24H PO SCH (08:16)
[2019-11-14] MEDS ORDERED: AZITHROMYCIN 250 MG TAB PO SCH (09:00)
[2019-11-14] MEDS: DOCUSATE 100 MG CAP PO PRN ×2 (12:01→21:20)
--- NOTE | 2019-11-14 13:21 | P.PN ---
Progress Note - Text Progress Note Date: 11/14/19 Subjective: Patient was seen today as a cross coverage for . The patient was evaluated, chart reviewed, case discussed with the treatment team. Patient addressed doesn't have bowel movement for the last 2 days and started her on stool softener today. Regarding her mood, she reports continued to feel stable emotionally and denies any depression, severe mood swings or anxiety symptoms, and he denies any suicidal or homicidal ideation. She denies any manic or psychotic symptoms. Patient reports increasing Seroquel to 50 mg help with her was better sleep last night, and he denies any appetite problems. She continued to take her medications as prescribed and he denies any side effects. She continued going to groups and other unit activities. Objective: Vitals has been reviewed. Mental status examination: Appearance: The patient appears stated age, adequately groomed and dressed, no specific features. Gait/posture: Normal gait, Normal arm swinging: No abnormal movements. Attitude and behavior: engaged, cooperative, eye contact. Motor activity: Normal psychomotor activity Speech: Normal rate, tone. Mood: "Fine" Affect: Constricted Thought form: goal-directed, linear, coherent. Thought content: Non-delusional, denies suicidal thoughts, denies homicidal thoughts, denies intentions or plans. Perception: Denies any auditory or visual hallucinations Attention: No impairment. Orientation: Patient patient was fully oriented to time place person and sit uation. Insight: Patient has fair insight about her psychiatric disorder. Judgment: Patient has fair judgment about her psychiatric treatment. Assessment: Major depressive disorder, recurrent, moderate. Rule out generalized anxiety disorder. Plan: Continue inpatient level of care due to need for further stabilization and discharge planning provide psychiatric education regarding her diagnosis and treatment Precautions: Continue 15 minutes check for safety. Consider medical consultation if any acute medical issues arise. Provide the patient individual, group therapy, substance use disorder counseling to give better insight and learn coping skills. Medications: Continue Wellbutrin 300 mg daily for depression. Continue Lexapro 20 mg daily for anxiety and depression. Continue Seroquel to 50 mg at bedtime when necessary insomnia. Discharge patient to OUTPATIENT services upon a stabilization
[2019-11-14] MEDS: MAGNESIUM HYDROXIDE 2,400 MG/10 ML CUP PO PRN (16:41)
[2019-11-14] MEDS ORDERED: diphenhydrAMINE 50 MG CAP PO PRN (20:49)
[2019-11-14 20:51] VITALS: TEMP 98.2
[2019-11-14] MEDS: MELATONIN 3 MG TABLET PO SCH (21:18)
[2019-11-14] MEDS: ESCITALOPRAM 20 MG TAB PO SCH (21:18)
[2019-11-15 01:10] VITALS: BP 101/63; PULSE 95; RESP 14
[2019-11-15] MEDS: DOCUSATE 100 MG CAP PO PRN (08:30)
[2019-11-15] MEDS: buPROPion XL 300 MG TAB.ER.24H PO SCH (08:30)
== END 2019-11-15 09:12 | DRG 885 ==
LOC: EC 20:50 → 3MHU 22:58
PROVIDERS: ADMIT Psychiatry & Neurology Psychiatry; ATTEND Psychiatry & Neurology Psychiatry
DX: F33.1 Major depressive disorder, recurrent, moderate (principal); R45.851 Suicidal ideations; F10.20 Alcohol dependence, uncomplicated; G47.00 Insomnia, unspecified; Z87.891 Personal history of nicotine dependence; F41.9 Anxiety disorder, unspecified; Z79.899 Other long term (current) drug therapy
CPT/HCPCS: 71045; 80053; 80061; 80306; 81025; 82075; 83036; 84443; 85025